=== PATIENT | male | born 1985 | race Caucasian/White ===

== ENCOUNTER 2017-03-07 11:19 | Emergency (ER) | payer OTHER ==
[~2017-03-07] VITALS: Ht 116.8 cm; Wt 65.3 kg
[~2017-03-07 11:19] MED LIST: CLC100 PO; GABA800T PO; OXYC-57 PO; OXYC1TAB3 PO
[2017-03-07 11:23] VITALS: Ht 116.8 cm; Wt 65.3 kg
--- NOTE | 2017-03-07 11:33 | EMERGENCY ROOM VISIT NOTE ---
History First contact with patient: 11:27 Chief Complaint: HYPERGLYCEMIA Stated Complaint: BLOOD SUGAR RUNNING HIGH History of Present Illness The patient is a 31 year old male who presents to the Emergency Room with complaints of high blood sugar past few days. Patient states he used to be taking metformin 1000 mg twice a day, which he states was managing his blood sugars well, however he had developed severe diarrhea from this medication, so his PCP switched him to extend release metformin a few months ago, which he has been taking at bedtime. Patient states he does not usually check his blood sugars, but started checking them over the past week and noticed that they have been running in the high 200s to 300s. He does note some increased thirst over the past few weeks. He denies any other associated symptoms of nausea, vomiting , abdominal pain, chest pain, shortness of breath, fever/chills, cough or URI symptoms, dysuria or urinary frequency. Patient states he discussed this with his PCP, who is going to switch him back to the immediate release metformin at the dosing he was on in the past. Patient states the primary reason he is here today is because [facility], but will not receive this medication for about a week, and he is requesting a short- term prescription in the interim. Review of Systems A complete 10 point review of systems was reviewed with the patient with pertinent positives and negatives as per history of present illness. All else were negative. Social History Smoking Status: Former Smoker Current/Historical Medications Scheduled Lisinopril (Zestril), 10 MG PO QAM Metformin Ext Rel (Glucophage Ext Rel), 1,500 MG PO HS Metformin Hcl (Glucophage), 1 TAB PO BID Naproxen (Naprosyn), 500 MG PO BID Sumatriptan Succinate (Imitrex), 50 MG PO PRN [Chl Formula], 4 TABS PO 1200 Allergies Coded Allergies: No Known Allergies (Unverified , 03/07/17) Physical Exam Vital Signs Date Time Temp Pulse Resp B/P (MAP) Pulse Ox O2 Delivery O2 Flow Rate FiO2 03/07/17 13:52 36.4 60 18 122/74 99 Room Air 03/07/17 13:52 60 18 122/76 99 03/07/17 11:23 36.4 86 20 144/79 97 Room Air Physical Exam CONSTITUTIONAL: No acute distress. Well appearing and well nourished. Alert and oriented X 4 with normal affect. HEENT: Normocephalic, atraumatic. Pupils equal, round and reactive to light, EOMI. TMs normal. Pharynx normal. Moist mucous membranes. NECK: Supple, full active range of motion without discomfort. RESPIRATORY: Clear to auscultation bilaterally with no wheezing, crackles, rhonchi or stridor. Equal expansion bilaterally. CARDIOVASCULAR: Regular rate and rhythm with no murmurs, rubs or gallops. Normal peripheral perfusion. No edema. GASTROINTESTINAL: Soft, nontender, nondistended. Bowel sounds present in all quadrants. MUSCULOSKELETAL: Full range of motion of all joints without discomfort. INTEGUMENTARY: No rash or other significant dermatologic conditions noted. NEUROLOGIC: Cranial nerves II-XII grossly intact. No focal neurologic deficits noted. Medical Decision & Procedures Laboratory Results 03/07/17 12:00 Test 03/07/17 11:36 03/07/17 12:00 Bedside Glucose 304 mg/dl (70-99) Anion Gap 9.0 mmol/L (3-11) Est Creatinine Clear Calc Drug Dose 63.3 ml/min Estimated GFR () 132.7 Estimated GFR (Non- 114.5 BUN/Creatinine Ratio 17.3 (10-20) Estimated Average Glucose 240 mg/dl Hemoglobin A1c 10.0 % (4.5-5.6) Calcium Level 9.4 mg/dl (8.5-10.1) Medical Decision CC: Patient presenting with complaint of high blood sugar Interpretation of Labs: Hyperglycemia, no other significant electrolyte abnormalities, normal renal function. Normal gap. Urine dip shows small ketones and large glucose. Differential Diagnosis: Includes, but not limited to hyperglycemia, poorly controlled diabetes, electrolyte abnormality, dehydration, UTI, DKA, among others. Medication Reconciliation: I attest that I have personally reviewed the patient' s current medication list. Vital signs review: I reviewed the patient's vital signs and interpret them as follows: T: Afebrile; BP: Hypertensive; HR: Within normal limits; RR: Thin normal limits; Pulse Ox: Within normal limits on room air. Blood pressure screening: The patient was found to have an elevated blood pressure and was referred to their primary doctor for recheck and further treatment. Summary: Patient was evaluated at bedside, history of physical exam performed. He is alert and pleasant, no acute distress. Patient states he really has no complaints, he is just concerned about his blood sugars being higher than normal and needs a refill prescription of his metformin in the interim until his new prescription comes from the [place]. Orders were placed at bedside for renal profile, hemoglobin A1c, and urine dip to evaluate for sequela of hyperglycemia. Patient discussed with Dr. Torres, who agrees with my assessment and plan. Patient reassessed multiple times throughout ED stay, he remains well appearing and in no acute distress. He is tolerating oral liquids. Labs reviewed, noting hyperglycemia without any other signs of DKA. Hemoglobin A1c is 10, which is greatly increased from his previous level in October which he states was 6. Patient was updated on all results and instructed to follow up with his PCP. Prescription for immediate release metformin was sent to the pharmacy for the patient. Patient was discharged home in stable condition Impression Primary Impression: Hyperglycemia Departure Information Dispostion Home / Self-Care Condition GOOD Prescriptions Metformin Hcl (GLUCOPHAGE) 1,000 Mg Tab 1 TAB PO BID for 14 Days, #28 TAB Prov: Richelle Schwab CRNP 03/07/17 Referrals Nancy Red M.D. (PCP) Patient Instructions ED Hyperglycemia Diabetic, [facility] Additional Instructions Follow up with your PCP in the next few days to discuss further management of your diabetes. There are many other options for oral medications to manage your blood sugar, ask your PCP about this. Your Hgb A1c level today is 10.0 Resume taking the metformin, 1000 mg twice a day, and stop taking the extended release metformin at night. Please return to the emergency department for severe nausea or persistent vomiting, abdominal pain, high fevers or chills, feeling ill, confusion, or any other concerns.
[2017-03-07] MEDS ORDERED: METFTAB PO (11:36)
[2017-03-07] MEDS ORDERED: LISI-729 PO (11:36)
[2017-03-07] MEDS ORDERED: NAPR250T2 PO (11:36)
[2017-03-07] MEDS ORDERED: [UNRECOGNIZED DRUG - OTHER] PO (11:36)
[2017-03-07] MEDS ORDERED: SUMA50TA15 PO (11:56)
[2017-03-07] MEDS ORDERED: NAPR-1169 PO (11:58)
[2017-03-07] MEDS ORDERED: LISI-461 PO (11:58)
[2017-03-07 12:45] LABS: CREATININE 0.88 mg/dl (0.60-1.40)
[2017-03-07 12:46] LABS: BUN/CREATININE RATIO 17.3 (10-20); CALCIUM 9.4 mg/dl (8.5-10.1); POTASSIUM 4.6 mmol/L (3.5-5.1)
[2017-03-07 13:04] LABS: ESTIMATED AVERAGE GLUCOSE 240 mg/dl; HA1C FLAG Normal (Normal)
[2017-03-07] MEDS ORDERED: METF1000 PO (13:06)
--- NOTE | 2017-03-07 13:40 | EMERGENCY ROOM VISIT NOTE ---
ED Visit Note First contact with patient: 11:27 Patient was seen by our PA/DIRECTOR OF RESOURCE DEVELOPMENT. I was involved in the patient's care and did evaluate the patient myself. I was involved in the care throughout the ER stay. The patient is in need of a prescription for Glucophage. Laboratory values are acceptable. He looks well, he is being discharged home.
[2017-03-07 13:52] VITALS: BP 122/74; PULSE 60; TEMP 36.4; O2SAT 99
== END 2017-03-07 13:54 | disposition home or self-care (01) ==
LOC: C.EDB 11:23 → C.EDC 13:54
DX: R73.9 Hyperglycemia, unspecified (principal); Z87.891 Personal history of nicotine dependence; Z79.899 Other long term (current) drug therapy; R03.0 Elevated blood-pressure reading, without diagnosis of hypertension